=== PATIENT | female | born 1945 | race Caucasian/White ===

== ENCOUNTER 2017-09-06 15:31 | Observation (INO) ==
[2017-09-06] MEDS ORDERED: ONDANSETRON 4 MG/2 ML VIAL IV STA (16:11)
[2017-09-06] MEDS ORDERED: MORPHINE 4 MG/1 ML VIAL IV STA (16:11)
[2017-09-06] MEDS ORDERED: ASPIRIN 325 MG TABLET PO STA (16:11)
[2017-09-06] MEDS ORDERED: ONDANSETRON 4 MG/2 ML VIAL ONE (16:23)
[2017-09-06] MEDS ORDERED: MORPHINE 4 MG/1 ML VIAL ONE (16:24)
[2017-09-06] MEDS ORDERED: ASPIRIN 325 MG TABLET ONE (16:24)
[2017-09-06 16:43] LABS: Basophils % 0.2 % (0.0-0.8); Eosinophils # 0.1 10*3/uL (0.0-0.87); Eosinophils % 1.4 % (0.00-10.9); Hematocrit 42.8 VOL% (35.7-47.0); Hemoglobin 14.3 GM/DL (12.0-16.0); Immature Granulocytes % 0.2 %; Immature Granulocytes Absolute 0.01 #; Lymphocytes # 1.2 10*3/uL (1.4-4.0); Mean Corpuscular HGB Conc 33.4 GM/DL (32-36); Mean Corpuscular Hemoglobin 32 PG (27-34); Mean Corpuscular Volume 96.8 FL (87-102); Monocytes # 0.5 10*3/uL (0.11-0.8); Neutrophils # 3.3 10*3/uL (1.4-7.4); Neutrophils % 66.2 % (38.7-73.9); Platelet Count 164 T/CUMM (130-400); Red Blood Count 4.42 MC/CUMM (3.8-5.5); Red Cell Distribution Width 12.1 % (9.3-17.3)
[2017-09-06 16:56] LABS: PT Patient Result 10.1 SECS; Partial Thromboplastin Time 24.5 SECS (0-40)
[2017-09-06 17:08] LABS: Alanine Aminotransferase 31 U/L (13-56); Albumin 4.1 G/DL (3.4-5.0); Alkaline Phosphatase 39 U/L (45-117); Aspartate Amino Transferase 25 U/L (0-37); Bilirubin,Total < 0.39 MG/DL (0.2-1.0); Blood Urea Nitrogen 15 MG/DL (7-18); Calcium 9.6 MG/DL (8.5-10.1); Glucose 100 MG/DL (74-106); Osmolality,Calculated 279.4 MOS/KG (273-304); Potassium 4.5 MMOL/L (3.5-5.1); Sodium 140 MMOL/L (136-145); Total Protein 7.6 G/DL (6.4-8.3)
[2017-09-06 18:23] LABS: Apearance,Urine CLEAR (Clear); Bilirubin,Urine Negative (Negative); Blood, Urine Negative (Negative); Glucose,Urine (UA) Negative (Negative); Ketones,Urine 5 mg/dL (Negative); Mucus,Urine Occasional /LPF (Occasional); Nitrite,Urine Negative (Negative); Protein,Urine Negative; RBC,Urine 1 /HPF (0-4); Squamous Epithelial Cell,Urine Occasional /HPF (0-10); Urine Color Straw (Yellow); Urine Specific Gravity 1.008 (1.001-1.035); Urine Urobilinogen < 2.0 EU/DL (0.2-1.0); WBC,Urine 2 /HPF (0-6)
[2017-09-06] MEDS ORDERED: ONDANSETRON 4 MG/2 ML VIAL IV PRN (18:43)
[2017-09-06 19:06] LABS: Risk Ratio 3.09; VLDL CHOLESTEROL 26.2 MG/DL
[2017-09-06] MEDS ORDERED: SULFAMETHOX/TRIMETHOPRIM 800-160 MG TABLET ONE (20:33)
[2017-09-06] MEDS: SULFAMETHOX/TRIMETHOPRIM 800-160 MG TABLET PO SCH ×3 (20:38→20:45)
[2017-09-06] MEDS ORDERED: ENOXAPARIN 40 MG/0.4 ML SYRINGE SUBCUT SCH (21:00)
[2017-09-06] MEDS ORDERED: traMADol 50 MG TABLET PO SCH (21:00)
[2017-09-06] MEDS ORDERED: traMADol 50 MG TABLET ONE (23:08)
[2017-09-07] MEDS: NITROGLYCERIN 2% OINT 1 INCH/GM PACK TOP SCH ×2 (00:44→09:06)
[2017-09-07] MEDS ORDERED: NITROGLYCERIN 2% OINT 1 INCH/GM PACK TOP ONE (00:45)
[2017-09-07] MEDS ORDERED: ACETAMINOPHEN 325 MG TABLET ONE (01:43)
[2017-09-07] MEDS ORDERED: ACETAMINOPHEN 325 MG TABLET PO ONE (01:47)
[2017-09-07] MEDS ORDERED: ASCORBIC ACID 500 MG TABLET PO SCH (09:00)
[2017-09-07] MEDS ORDERED: CHOLECALCIFEROL 1,000 UNIT TABLET PO SCH (09:00)
[2017-09-07] MEDS ORDERED: ASPIRIN EC 325 MG TABLET PO SCH (09:00)
[2017-09-07] MEDS ORDERED: ROSUVASTATIN 20 MG TABLET PO SCH (09:00)
[2017-09-07] MEDS ORDERED: PANTOPRAZOLE 40 MG TABLET PO SCH (09:00)
[2017-09-07] MEDS ORDERED: ANASTROZOLE 1 MG TABLET PO SCH (09:00)
[2017-09-07] MEDS ORDERED: SULFAMETHOX/TRIMETHOPRIM 800-160 MG TABLET ONE ×2 (09:16→09:17)
[2017-09-07] MEDS ORDERED: ASPIRIN EC 325 MG TABLET PO ONE (09:16)
[2017-09-07] MEDS: SULFAMETHOX/TRIMETHOPRIM 800-160 MG TABLET PO SCH (09:18)
[2017-09-07] MEDS ORDERED: PANTOPRAZOLE 40 MG TABLET PO ONE (09:19)
[2017-09-07] MEDS ORDERED: ACETAMINOPHEN 325 MG TABLET PO PRN (11:26)
[2017-09-07 16:24] VITALS: BP 126/71
== END 2017-09-07 16:30 | disposition home or self-care (01) ==
LOC: N.EDINP 15:31 → N.ED 15:31 → N.EDINP 09-07 05:44 → N.3E 09-07 10:15
PROVIDERS: ADMIT Internal Medicine; ATTEND Internal Medicine

== ENCOUNTER 2020-12-12 00:39 | Inpatient (IN) ==
[2020-12-12] MEDS ORDERED: ONDANSETRON 4 MG/2 ML VIAL IV STA (04:51)
[2020-12-12] MEDS ORDERED: SODIUM CHLORIDE 0.9% 1,000 ML IV STA (04:51)
[2020-12-12] MEDS ORDERED: MORPHINE 2 MG/1 ML SYRINGE IV STA (04:51)
[2020-12-12 05:52] LABS: Bacteria,Urine Occasional /HPF (Few); Bilirubin,Urine Negative (Negative); Blood, Urine Negative (Negative); Calcium Oxalate Crystals,Urine Occasional /HPF (Few); Glucose,Urine (UA) Negative (Negative); Ketones,Urine Negative (Negative); Mucus,Urine Occasional /LPF (Occasional); Nitrite,Urine Negative (Negative); Protein,Urine 30 MG/DL; RBC,Urine 14 /HPF (0-4); Squamous Epithelial Cell,Urine Occasional /HPF (0-10); Urine Appearance Slightly Hazy (Clear); Urine Color Yellow (Yellow); Urine Specific Gravity 1.018 (1.001-1.035)
[2020-12-12 06:13] LABS: Basophils % 0.1 % (0.0-0.8); Eosinophils % 0.1 % (0.00-10.9); Hematocrit 42.3 VOL% (35.7-47.0); Immature Granulocytes % 0.3 %; Immature Granulocytes Absolute 0.02 #; Lymphocytes # 0.9 10*3/uL (1.4-4.0); Lymphocytes % 11.6 % (21.3-54.2); Mean Corpuscular HGB Conc 33.1 GM/DL (32-36); Mean Corpuscular Volume 98.1 FL (87-102); Mean Platelet Volume 10.2 FL (9.6-12.0); Monocytes % 3.7 % (1.7-12.7); Neutrophils % 84.2 % (38.7-73.9); Platelet Count 170 T/CUMM (130-400); Red Blood Count 4.31 MC/CUMM (3.8-5.5); Red Cell Distribution Width 12.1 % (9.3-17.3); White Blood Count 7.9 T/CUMM (4-12)
[2020-12-12 06:22] LABS: Bilirubin,Total 0.7 MG/DL (0.20-1.00); Calcium 8.8 MG/DL (8.5-10.1); Osmolality,Calculated 290.8 MOS/KG (273-304); Potassium 4.1 MMOL/L (3.5-5.1); Total Protein 7.5 G/DL (6.4-8.2)
[2020-12-12] MEDS ORDERED: cefTRIAXone 1,000 MG in SODIUM CHLORIDE 0.9% 100 ML IV STA (06:37)
[2020-12-12] MEDS ORDERED: GLUCAGON 1 MG VIAL IM PRN (09:09)
[2020-12-12] MEDS ORDERED: ONDANSETRON 4 MG/2 ML VIAL IV PRN (09:09)
[2020-12-12] MEDS ORDERED: DEXTROSE 50% 25 GM/50 ML VIAL IV PRN (09:09)
[2020-12-12] MEDS ORDERED: ACETAMINOPHEN 325 MG TABLET PO PRN (09:09)
[2020-12-12] MEDS: SODIUM CHLORIDE 0.45% 1,000 ML IV SCH ×2 (12:17→22:02)
[2020-12-12] MEDS: INSULIN LISPRO 100 UNIT/ML SUBCUT SCH ×3 (12:59→20:40)
[2020-12-12] MEDS: MORPHINE 2 MG/1 ML SYRINGE IV PRN (16:22)
[2020-12-12 19:49] LABS: Bilirubin,Urine Negative (Negative); Blood, Urine Moderate mg/dL (Negative); Glucose,Urine (UA) Negative (Negative); Ketones,Urine Negative (Negative); Nitrite,Urine Negative (Negative); Protein,Urine Negative; RBC,Urine 27 /HPF (0-4); Squamous Epithelial Cell,Urine Occasional /HPF (0-10); Urine Appearance CLEAR (Clear); Urine Color Yellow (Yellow); Urine Specific Gravity 1.005 (1.001-1.035); Urine Urobilinogen < 2.0 EU/DL (0.2-1.0)
[2020-12-13 06:23] LABS: Basophils % 0.4 % (0.0-0.8); Eosinophils # 0.1 10*3/uL (0.0-0.87); Eosinophils % 1.5 % (0.00-10.9); Hematocrit 35.5 VOL% (35.7-47.0); Hemoglobin 11.5 GM/DL (12.0-16.0); Immature Granulocytes % 0.2 %; Immature Granulocytes Absolute 0.01 #; Lymphocytes # 1.6 10*3/uL (1.4-4.0); Lymphocytes % 33.5 % (21.3-54.2); Mean Corpuscular HGB Conc 32.4 GM/DL (32-36); Mean Corpuscular Volume 100.9 FL (87-102); Mean Platelet Volume 9.7 FL (9.6-12.0); Monocytes % 9.4 % (1.7-12.7); Platelet Count 128 T/CUMM (130-400); Red Blood Count 3.52 MC/CUMM (3.8-5.5); Red Cell Distribution Width 12.3 % (9.3-17.3); White Blood Count 4.8 T/CUMM (4-12)
[2020-12-13 06:38] LABS: Calcium 7.9 MG/DL (8.5-10.1); Osmolality,Calculated 287.7 MOS/KG (273-304); Potassium 3.5 MMOL/L (3.5-5.1)
[2020-12-13] MEDS: INSULIN LISPRO 100 UNIT/ML SUBCUT SCH ×4 (08:32→21:32)
[2020-12-13 08:45] LABS: PT Patient Result 10.7 SECS (10.5-12.0)
[2020-12-13] MEDS: MORPHINE 2 MG/1 ML SYRINGE IV PRN (09:01)
[2020-12-13] MEDS: cefTRIAXone 1,000 MG in SODIUM CHLORIDE 0.9% 100 ML IV SCH (09:08)
[2020-12-13] MEDS ORDERED: ENOXAPARIN 40 MG/0.4 ML SYRINGE SUBCUT SCH (09:30)
[2020-12-13] MEDS ORDERED: fentaNYL 100 MCG/2 ML VIAL ONE (11:15)
[2020-12-13] MEDS ORDERED: MIDAZOLAM 2 MG/2 ML VIAL ONE (11:15)
[2020-12-13] MEDS ORDERED: fentaNYL 100 MCG/2 ML VIAL IV ONE (11:30)
[2020-12-13] MEDS ORDERED: MIDAZOLAM 2 MG/2 ML VIAL IV ONE (11:30)
[2020-12-13] MEDS ORDERED: GLUCAGON 1 MG VIAL IM PRN (13:24)
[2020-12-13] MEDS ORDERED: DEXTROSE 50% 25 GM/50 ML VIAL IV PRN (13:24)
[2020-12-13] MEDS: SODIUM CHLORIDE 0.45% 1,000 ML IV SCH (14:15)
[2020-12-13] MEDS ORDERED: ROSUVASTATIN 20 MG TABLET PO SCH (21:00)
[2020-12-14] MEDS: SODIUM CHLORIDE 0.45% 1,000 ML IV SCH (04:16)
[2020-12-14 06:36] LABS: Basophils % 0.2 % (0.0-0.8); Eosinophils # 0.1 10*3/uL (0.0-0.87); Eosinophils % 1.5 % (0.00-10.9); Hematocrit 38.8 VOL% (35.7-47.0); Hemoglobin 12.9 GM/DL (12.0-16.0); Immature Granulocytes % 0.2 %; Immature Granulocytes Absolute 0.01 #; Lymphocytes # 1.4 10*3/uL (1.4-4.0); Lymphocytes % 29.6 % (21.3-54.2); Mean Corpuscular HGB Conc 33.2 GM/DL (32-36); Mean Corpuscular Volume 99.5 FL (87-102); Mean Platelet Volume 9.9 FL (9.6-12.0); Monocytes % 7.8 % (1.7-12.7); Neutrophils % 60.7 % (38.7-73.9); Platelet Count 140 T/CUMM (130-400); White Blood Count 4.8 T/CUMM (4-12)
[2020-12-14 07:07] LABS: Calcium 8.2 MG/DL (8.5-10.1); Osmolality,Calculated 284.8 MOS/KG (273-304); Potassium 3.4 MMOL/L (3.5-5.1)
[2020-12-14] MEDS ORDERED: POTASSIUM CHLORIDE 20 MEQ TABLET PO ONE (07:47)
[2020-12-14] MEDS ORDERED: ESCITALOPRAM 10 MG TABLET PO SCH (09:00)
[2020-12-14] MEDS ORDERED: METOPROLOL SUCCINATE XL 50 MG TABLET PO SCH (09:00)
[2020-12-14] MEDS ORDERED: CHOLECALCIFEROL 1,000 UNIT TABLET PO SCH (09:00)
[2020-12-14] MEDS ORDERED: ASCORBIC ACID 500 MG TABLET PO SCH (09:00)
[2020-12-14] MEDS ORDERED: PANTOPRAZOLE 40 MG TABLET PO SCH (09:00)
[2020-12-14] MEDS ORDERED: ROSUVASTATIN 20 MG TABLET PO SCH (09:00)
[2020-12-14] MEDS: cefTRIAXone 1,000 MG in SODIUM CHLORIDE 0.9% 100 ML IV SCH (09:09)
[2020-12-14 11:18] VITALS: BP 129/66
[2020-12-14] MEDS: INSULIN LISPRO 100 UNIT/ML SUBCUT SCH (11:28)
== END 2020-12-14 14:20 | disposition home health service (06) | DRG 690 ==
LOC: N.ED 00:39 → N.EDINP 08:51 → SUATTDRO 08:51 → N.EDINP 11:10 → N.3E 11:51 → N.OB 22:06
PROVIDERS: ADMIT Hospitalist; ATTEND Internal Medicine

== ENCOUNTER 2021-01-10 05:44 | Inpatient (IN) ==
[2021-01-10] MEDS ORDERED: LEVOFLOXACIN INJ 500 MG/100 ML PREMIX IV ONE (06:00)
[2021-01-10] MEDS ORDERED: ALVIMOPAN 12 MG CAPSULE PO ONE (06:00)
[2021-01-10] MEDS: LACTATED RINGERS 1,000 ML IV SCH (06:30)
[2021-01-10] MEDS ORDERED: LIDOCAINE 2% 5 ML VIAL ONE (06:54)
[2021-01-10] MEDS ORDERED: ONDANSETRON 4 MG/2 ML VIAL ONE (06:54)
[2021-01-10] MEDS ORDERED: fentaNYL 100 MCG/2 ML VIAL ONE (06:54)
[2021-01-10] MEDS ORDERED: propofoL 200 MG/20 ML VIAL IV ONE (06:54)
[2021-01-10] MEDS ORDERED: ROCURONIUM 50 MG/5 ML VIAL IV ONE (06:54)
[2021-01-10] MEDS ORDERED: DEXAMETHASONE 4 MG/1 ML VIAL ONE (06:54)
[2021-01-10] MEDS ORDERED: EPINEPHrine 1 MG/10 ML SYRINGE ONE (08:36)
[2021-01-10] MEDS ORDERED: ePHEDrine 50 MG/ML VIAL ONE (08:53)
[2021-01-10] MEDS ORDERED: SEVOFLURANE 1 UNIT/15 MINUTE INH ONE ×7 (08:54→10:27)
[2021-01-10] MEDS ORDERED: GLYCOPYRROLATE 0.4 MG/2 ML VIAL ONE (10:07)
[2021-01-10] MEDS ORDERED: LACTATED RINGERS 1,000 ML IV ONE (10:25)
[2021-01-10] MEDS ORDERED: ONDANSETRON 4 MG/2 ML VIAL IV PRN (10:36)
[2021-01-10] MEDS ORDERED: HYDROmorphone 2 MG/1 ML VIAL IV PRN (10:38)
[2021-01-10 10:55] LABS: Bilirubin,Urine Negative (Negative); Blood, Urine Small mg/dL (Negative); Glucose,Urine (UA) Negative (Negative); Ketones,Urine Negative (Negative); Mucus,Urine Occasional /LPF (Occasional); Nitrite,Urine Negative (Negative); Protein,Urine Negative; RBC,Urine 13 /HPF (0-4); Urine Appearance CLEAR (Clear); Urine Color Yellow (Yellow); Urine Specific Gravity 1.012 (1.001-1.035); Urine Urobilinogen < 2.0 EU/DL (0.2-1.0)
[2021-01-10] MEDS ORDERED: SODIUM CHLORIDE 0.45% 1,000 ML IV SCH (11:00)
[2021-01-10] MEDS: oxyCODONE/ACETAMINOPHEN 5-325 MG TABLET PO PRN ×2 (18:19→22:10)
[2021-01-10] MEDS: OXYBUTYNIN XL 10 MG TABLET PO SCH (22:05)
[2021-01-10] MEDS: ALVIMOPAN 12 MG CAPSULE PO SCH (22:05)
[2021-01-11] MEDS: oxyCODONE/ACETAMINOPHEN 5-325 MG TABLET PO PRN ×2 (05:49→20:59)
[2021-01-11 06:24] LABS: Basophils % 0.1 % (0.0-0.8); Hemoglobin 12.5 GM/DL (12.0-16.0); Immature Granulocytes % 0.4 %; Immature Granulocytes Absolute 0.03 #; Mean Corpuscular HGB Conc 32.9 GM/DL (32-36); Mean Corpuscular Volume 99.2 FL (87-102); Monocytes % 9.5 % (1.7-12.7); Platelet Count 159 T/CUMM (130-400); Red Blood Count 3.83 MC/CUMM (3.8-5.5); Red Cell Distribution Width 12.5 % (9.3-17.3); White Blood Count 7.3 T/CUMM (4-12)
[2021-01-11 06:42] LABS: Calcium 8.6 MG/DL (8.5-10.1); Osmolality,Calculated 281.3 MOS/KG (273-304); Potassium 4.1 MMOL/L (3.5-5.1)
[2021-01-11] MEDS: METOPROLOL SUCCINATE XL 25 MG TABLET PO SCH (08:55)
[2021-01-11] MEDS: LETROZOLE 2.5 MG TABLET PO SCH (08:55)
[2021-01-11] MEDS: ALVIMOPAN 12 MG CAPSULE PO SCH ×2 (08:55→20:59)
[2021-01-11] MEDS: ESCITALOPRAM 10 MG TABLET PO SCH (08:55)
[2021-01-11] MEDS: CHOLECALCIFEROL 1,000 UNIT TABLET PO SCH (08:55)
[2021-01-11] MEDS: ASPIRIN EC 81 MG TABLET PO SCH (08:55)
[2021-01-11] MEDS: AMOXICILLIN 500 MG CAPSULE PO SCH (08:55)
[2021-01-11] MEDS: ASCORBIC ACID 500 MG TABLET PO SCH (08:56)
[2021-01-11] MEDS: OXYBUTYNIN XL 10 MG TABLET PO SCH (08:56)
[2021-01-11] MEDS: PANTOPRAZOLE 40 MG TABLET PO SCH (08:56)
[2021-01-11] MEDS: ROSUVASTATIN 20 MG TABLET PO SCH (08:56)
[2021-01-11] MEDS: LACTATED RINGERS 1,000 ML IV SCH (11:23)
[2021-01-12] MEDS ORDERED: POLYETHYLENE GLYCOL POWDER 255 GM BOTTLE PO ONE (11:15)
[2021-01-12] MEDS ORDERED: POLYETHYLENE GLYCOL POWDER 17 GM PACK PO PRN (11:45)
[2021-01-12] MEDS: METOCLOPRAMIDE 10 MG/2 ML VIAL IV PRN ×2 (13:17→20:06)
[2021-01-12] MEDS: SODIUM CHLORIDE 0.9% 1,000 ML IV SCH (13:21)
[2021-01-12] MEDS: LETROZOLE 2.5 MG TABLET PO SCH (15:41)
[2021-01-12] MEDS: ALVIMOPAN 12 MG CAPSULE PO SCH ×2 (15:41→20:06)
[2021-01-12] MEDS: AMOXICILLIN 500 MG CAPSULE PO SCH (15:41)
[2021-01-12] MEDS: ASPIRIN EC 81 MG TABLET PO SCH (15:41)
[2021-01-12] MEDS: ROSUVASTATIN 20 MG TABLET PO SCH (15:41)
[2021-01-12] MEDS: OXYBUTYNIN XL 10 MG TABLET PO SCH (15:41)
[2021-01-12] MEDS: ASCORBIC ACID 500 MG TABLET PO SCH (15:42)
[2021-01-12] MEDS: METOPROLOL SUCCINATE XL 25 MG TABLET PO SCH (15:42)
[2021-01-12] MEDS: PANTOPRAZOLE 40 MG TABLET PO SCH (15:42)
[2021-01-12] MEDS: ESCITALOPRAM 10 MG TABLET PO SCH (15:42)
[2021-01-12] MEDS: CHOLECALCIFEROL 1,000 UNIT TABLET PO SCH (15:43)
[2021-01-12] MEDS: POLYETHYLENE GLYCOL POWDER 17 GM PACK PO SCH (20:06)
[2021-01-12] MEDS: oxyCODONE/ACETAMINOPHEN 5-325 MG TABLET PO PRN (22:08)
[2021-01-13] MEDS: SODIUM CHLORIDE 0.9% 1,000 ML IV SCH (03:56)
[2021-01-13 07:30] VITALS: BP 123/58
[2021-01-13] MEDS: METOCLOPRAMIDE 10 MG/2 ML VIAL IV PRN (08:59)
[2021-01-13] MEDS: POLYETHYLENE GLYCOL POWDER 17 GM PACK PO SCH (08:59)
[2021-01-13] MEDS: AMOXICILLIN 500 MG CAPSULE PO SCH (09:00)
[2021-01-13] MEDS: METOPROLOL SUCCINATE XL 25 MG TABLET PO SCH (09:00)
[2021-01-13] MEDS: ALVIMOPAN 12 MG CAPSULE PO SCH (09:00)
[2021-01-13] MEDS: ASCORBIC ACID 500 MG TABLET PO SCH (09:00)
[2021-01-13] MEDS: ESCITALOPRAM 10 MG TABLET PO SCH (09:00)
[2021-01-13] MEDS: CHOLECALCIFEROL 1,000 UNIT TABLET PO SCH (09:00)
[2021-01-13] MEDS: ASPIRIN EC 81 MG TABLET PO SCH (09:00)
[2021-01-13] MEDS: OXYBUTYNIN XL 10 MG TABLET PO SCH (09:00)
[2021-01-13] MEDS: ROSUVASTATIN 20 MG TABLET PO SCH (09:00)
[2021-01-13] MEDS: LETROZOLE 2.5 MG TABLET PO SCH (09:00)
[2021-01-13] MEDS: PANTOPRAZOLE 40 MG TABLET PO SCH (09:00)
== END 2021-01-13 11:39 | disposition home health service (06) | DRG 660 ==
LOC: N.RAD 05:44 → N.SDSINP 05:47 → N.5E 12:00
PROVIDERS: ADMIT Urology; ATTEND Urology